=== PATIENT | male | born 1975 | race Caucasian/White ===

== ENCOUNTER 2018-03-14 09:55 | Emergency (ER) | payer OTHER ==
[2018-03-14 10:02] VITALS: BP 178/98
[2018-03-14] MEDS ORDERED: AMOXICILLIN TR/POT CLAVULANATE 500-125 MG TAB PO ONE (10:34)
[2018-03-14] MEDS ORDERED: ACETAMINOPHEN 325 MG TABLET PO ONE (10:34)
[2018-03-14] MEDS ORDERED: IBUPROFEN 600 MG TABLET PO ONE (10:34)
--- NOTE | 2018-03-14 10:37 | ER Document Report ---
ED General - General Chief Complaint: Dog Bite Stated Complaint: DOG BITE Time Seen by Provider: 03/14/18 10:12 Notes: Patient is a 42-year-old male with hypertension that presents to the emergency department for chief complaint of multiple dog bites. Patient states that he was at work, went to a client's house, knocked on the door, and as a door open, a large great Eric came out and bit him 3 times, in the right forearm, left tricep, and right flank. Patient complaining of aching type pain in all these locations describes it as a 7 out of 10 at this time, and constant in nature. He did not take any medication prior to ED arrival, this occurred just about 20 minutes prior to ED arrival. He reports he is up-to-date with his tetanus vaccination receiving it in November of this year. Denies any other symptoms at this time, denies any numbness, tingling or weakness in his hands or feet. The dog was a domesticated dog, not aware of the rabies status of the actual dog. Past Medical History: Hypertension Past Surgical History: Knee surgery Social History: Admits to chewing tobacco, denies cigarette smoke, alcohol or drug use Family History: Reviewed and noncontributory for presenting illness Allergies: Reviewed, see documented allergy list. REVIEW OF SYSTEMS: Unless otherwise stated in this report the patient's positive and negative responses for review of systems for constitutional, eyes, ENT, cardiovascular, respiratory, gastrointestinal, neurological, genitourinary, musculoskeletal, and integumentary systems and related systems to the presenting problem are either as stated in the HPI or were not pertinent or were negative for the symptoms and/or complaints related to the presenting medical problem. PHYSICAL EXAMINATION: Vital signs reviewed, nursing noted reviewed. GENERAL: Well-appearing, well-nourished and in no acute distress. HEAD: Atraumatic, normocephalic. EYES: Eyes appear normal, extraocular movements intact, sclera anicteric, conjunctiva are normal. ENT: nares patent, oropharynx clear without exudates. Moist mucous membranes. NECK: Normal range of motion, supple without lymphadenopathy LUNGS: Breath sounds clear to auscultation bilaterally and equal. No wheezes rales or rhonchi. HEART: Regular rate and rhythm without murmurs ABDOMEN: Soft,normoactive bowel sounds. No rebound, guarding, or rigidity. No masses appreciated. Patient noted to have superficial abrasions, mild ecchymosis, and 2 superficial puncture wounds, to the flank, there is mild tenderness with palpation, no deep wounds are noted. EXTREMITIES: The left tricep, has 3 small superficial puncture serrano, and abrasions, with some ecchymosis, and hematoma formation, there is tenderness to palpation, patient is neurovascularly intact distally in the left upper extremity, bite serrano were not near the shoulder, or elbow joints. He has good range of motion. There are superficial puncture serrano 2 of them on his right forearm, mild tenderness to palpate to this area, no deep puncture wounds. Tendon function intact distally, neurovascularly intact distally in the right upper extremity as well. NEUROLOGICAL: No focal neurological deficits. Moves all extremities spontaneously Motor and sensory grossly intact on exam. PSYCH: Normal mood, normal affect. SKIN: Warm, Dry, normal turgor, no rashes noted on exposed skin TRAVEL OUTSIDE OF THE [place] IN LAST 30 DAYS: No - Related Data Allergies/Adverse Reactions: No Known Allergies Allergy (Unverified 03/14/18 09:58) Past Medical History - Social History Smoking Status: Never Smoker Chew tobacco use (# tins/day): Yes Drug Abuse: None Family History: Reviewed & Not Pertinent Patient has suicidal ideation: No Patient has homicidal ideation: No - Past Medical History Cardiac Medical History: Reports: Hx Hypertension Renal/ Medical History: Denies: Hx Peritoneal Dialysis Past Surgical History: Reports: Hx Orthopedic Surgery Physical Exam - Vital signs Vitals: Temp Pulse Resp BP Pulse Ox 98.9 F 75 15 178/98 H 99 03/14/18 10:01 03/14/18 10:01 03/14/18 10:01 03/14/18 10:01 03/14/18 10:01 Course - Re-evaluation Re-evalutation: Patient seen and examined vital signs reviewed. Patient was evaluated and treated as appropriate for the patient's presenting symptoms and complaint, with consideration of any critical or life threatening conditions that may be associated with their obtained history and exam as noted above. Patient was treated with local wound care, Augmentin, Motrin and Tylenol The patient was re-evaluated and was improved, still having aching from his wounds Evaluation was most consistent with multiple dog bites and puncture wounds Patient was up-to-date with his tetanus vaccination, will discharge him home on Augmentin for 7 days, advised local wound care, keeping them clean and dry with soap and water, paperwork sent to animal control, for pointing of the animal, I do not feel the patient would need rabies vaccination and a domesticated animal , or rabies immunoglobulin, he is advised to follow-up with animal control. Plan of care was discussed with the patient at this point, after careful consideration I feel that that patient can be discharged from the emergency department, the patient was educated treatments and reasons to return to the emergency department based on their presumed diagnosis as noted above, they were advised to followup with a primary care physician in 2-3 days. Patient was agreeable to plan of care. *Note is created using voice recognition software and may contain spelling, syntax or grammatical errors. - Vital Signs Vital signs: Temp Pulse Resp BP Pulse Ox 98.9 F 75 15 178/98 H 99 03/14/18 10:01 03/14/18 10:01 03/14/18 10:01 03/14/18 10:01 03/14/18 10:01 Discharge - Discharge Clinical Impression: Puncture wound Dog bite Qualifiers: Encounter type: initial encounter Qualified Code(s): W54.0XXA - Bitten by dog, initial encounter Condition: Stable Disposition: HOME, SELF-CARE Instructions: Animal Bites ([facility]) Additional Instructions: Please return if you develop signs of infection to the wounds, such as pus drainage, worsening redness, or pain, otherwise please follow-up with your primary care physician, take the antibiotics as prescribed, and keep these wounds clean. Prescriptions: Ibuprofen [Motrin 600 mg Tablet] 600 mg PO Q8HP PRN #30 tablet PRN Reason: general pain Amox Tr/Potassium Clavulanate [Augmentin 875-125 mg Tablet] 1 tab PO BID #14 tablet Forms: Return to Work
== END 2018-03-14 11:22 | disposition home or self-care (01) ==
LOC: ER 09:55
DX: S51.831A Puncture wound without foreign body of right forearm, initial encounter (principal); S31.030A Puncture wound without foreign body of lower back and pelvis without penetration into retroperitoneum, initial encounter; W54.0XXA Bitten by dog, initial encounter; Y99.0 Civilian activity done for income or pay; I10 Essential (primary) hypertension
CPT/HCPCS: 99283